=== PATIENT | female | born 1990 | race Hispanic/Latino ===

== ENCOUNTER 2016-12-03 19:50 | Observation (INO) | payer MEDICAID ==
[2016-12-03 21:16] LABS: BASO % 0.4 % (0.0-2.0); EOS # 0.1 K/uL (0.0-0.7); EOS % 0.5 % (0.0-4.0); LYMPH # 2.5 K/uL (1.0-4.3); LYMPH % 21.3 % (20.0-40.0); MEAN CELL VOLUME 94.9 fl (81.0-99.0); MEAN CORPUSCULAR HEMOGLOBIN 31.5 pg (27.0-31.0); MEAN CORPUSCULAR HGB CONC 33.2 g/dL (33.0-37.0); MEAN PLATELET VOLUME 7.6 fl (7.2-11.7); MONO # 0.6 K/uL (0.0-0.8); MONO % 4.9 % (0.0-10.0); NEUT # 8.5 K/uL (1.8-7.0); NEUT % 72.9 % (50.0-75.0); RED CELL DISTRIBUTION WIDTH 12.8 % (11.5-14.5); WHITE BLOOD COUNT 11.7 K/uL (4.8-10.8)
[2016-12-03 21:27] LABS: ALB/GLOB RATIO 1.5 (1.0-2.1); ALCOHOL SERUM < 10 mg/dl (0-10); ALKALINE PHOSPHATASE 65 U/L (38-126); ALT/SGPT 7 U/L (9-52); AST/SGOT 24 U/L (14-36); BILIRUBIN,TOTAL 0.5 mg/dl (0.2-1.3); BLOOD UREA NITROGEN 12 mg/dl (7-17); CALCIUM 9.1 mg/dL (8.4-10.2); CARBON DIOXIDE 23 mmol/L (22-30); CHLORIDE 105 mmol/L (98-107); GFR AFRICAN-AMERICAN > 60; GLUCOSE,RANDOM 131 mg/dL (65-105); MAGNESIUM 2.2 MG/DL (1.6-2.3); POTASSIUM 3.1 MMOL/L (3.6-5.0); SODIUM 144 mmol/l (132-148); TOTAL PROTEIN 7.1 G/DL (6.3-8.2)
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
--- NOTE | 2016-12-03 22:29 | CT ---
EXAM: CT Head Without Intravenous Contrast CLINICAL HISTORY: 37 years old, female; Pain; Headache; Additional info: AMS TECHNIQUE: Axial computed tomography images of the head/brain without intravenous contrast. This CT exam was performed using one or more of the following dose reduction techniques: automated exposure control, adjustment of the mA and/or kV according to patient size, and/or use of iterative reconstruction technique. COMPARISON: No relevant prior studies available. FINDINGS: Brain: No acute intracranial hemorrhage. No significant white matter disease. No edema. Ventricles: No significant ventriculomegaly. Bones: No acute displaced fracture. Sinuses: Unremarkable as visualized. No acute sinusitis. Mastoid air cells: Unremarkable as visualized. No mastoid effusion. IMPRESSION: No acute intracranial hemorrhage, or suspicious mass effect.
[2016-12-04] MEDS ORDERED: Potassium Chloride 20 mEq ER Tab PO ONE (00:19)
--- NOTE | 2016-12-04 00:28 | ED PDOC ---
- Laboratory Results Result Diagrams: 12/03/16 21:05 12/03/16 21:05 - ECG O2 Sat by Pulse Oximetry: 98 (RA) Pulse Ox Interpretation: Normal Medical Decision Making Medical Decision Making: Receiving Sign Out: Patient signed out to me by Dr. Fajardo pending screening from [facility] [place] for transfer. Vital signs are stable. Labs reviewed. In my opinion there are no current acute medical conditions that contraindicate the placement of this patient in a psychiatric unit. Scribe Attestation: Documented by Ceci Merlos acting as a scribe for Liang Gilmore MD. Provider Attestation: All medical record entries made by the Scribe were at my direction and personally dictated by me. I have reviewed the chart and agree that the record accurately reflects my personal performance of the history, physical exam, medical decision making, and the department course for this patient. I have also personally directed, reviewed, and agree with the discharge instructions and disposition. Disposition Counseled Patient/Family Regarding: Studies Performed, Diagnosis - Clinical Impression Clinical Impression: Psychosis - POA Present On Arrival: None - Disposition Disposition: Transfer of Care Disposition Time: 07:00 Condition: FAIR Patient Signed Over To: Louis Reid Handoff Comments: pending [facility] screening ED OBSERVATION Date of observation admission: 12/03/16 Time of observation admission: 21:00 - Observation admission statement Patient is being placed in observation because:: Pt awaiting [facility] transfer - Goals of Observation Goals of observation are:: Awaiting transfer - Progress Note Progress Note: 12/04/16 00:00 Pt signed over to me by Dr. Fajardo pending [facility] screen and transfer. 12/04/16 02:08 Pt in room, vitals stable 12/04/16 04:09 Pt resting in room, vitals stable.
[2016-12-04] MEDS ORDERED: K-Lyte 25meq EF Tab PO ONE ×2 (01:31→01:36)
--- NOTE | 2016-12-04 09:02 | CARD ---
APPROVED REPORT EKG Measurement Heart [id number] WI [id number] <Conclusion> Normal sinus rhythm T wave abnormality, consider anterior ischemia Abnormal ECG
--- NOTE | 2016-12-04 09:59 | ED PDOC ---
- Laboratory Results Result Diagrams: 12/03/16 21:05 12/03/16 21:05 - ECG O2 Sat by Pulse Oximetry: 97 - Radiology X-Ray: Interpreted by Me X-Ray Interpretation: No Acute Disease Medical Decision Making Medical Decision Making: Ttempted to hit 1:1 sitting with her. Attempt at de-escalation unsuccessful. Will place in 4 point restraints. No infiltrates or acute processes noted on CXR Disposition - Clinical Impression Clinical Impression: Psychosis - POA Present On Arrival: None - Disposition Disposition: Transfer of Care Disposition Time: 14:59 Condition: STABLE Patient Signed Over To: Favio Jacinto
--- NOTE | 2016-12-04 12:44 | RAD ---
HISTORY: psych eval COMPARISON: No prior. FINDINGS: LUNGS: No active pulmonary disease. PLEURA: No significant pleural effusion identified, no pneumothorax apparent. CARDIOVASCULAR: Normal. OSSEOUS STRUCTURES: No significant abnormalities. VISUALIZED UPPER ABDOMEN: Normal. OTHER FINDINGS: None. IMPRESSION: No active disease.
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
[2016-12-04 16:43] VITALS: BP 121/74; PULSE 84; RESP 18; TEMP 98.1
--- NOTE | 2016-12-04 17:43 | ED PDOC ---
- Laboratory Results Result Diagrams: 12/03/16 21:05 12/03/16 21:05 - ECG O2 Sat by Pulse Oximetry: 97 - Progress ED Course And Treament: 1500: Took over care from Dr. Reid. [place] on transfer. Medically cleared by him and transfer for psych accepted. 1741: Stable. Transfer here to take to [facility] [place]. Disposition - Clinical Impression Clinical Impression: Psychosis - POA Present On Arrival: None - Disposition Disposition: Other Institution Disposition Time: 17:42 Condition: FAIR
[2016-12-05 14:45] VITALS: O2SAT 98
== END 2016-12-04 17:53 ==
LOC: H.ER 19:50 → H.EROBSV 21:00 → MERGE 21:00 → EDBD 21:00
PROVIDERS: ADMIT Emergency Medicine; ATTEND Emergency Medicine
DX: F23 Brief psychotic disorder (principal); F12.10 Cannabis abuse, uncomplicated; Z78.1 Physical restraint status

== ENCOUNTER 2016-12-23 00:50 | Emergency (ER) | payer MEDICAID ==
[2016-12-23 01:06] VITALS: BP 133/84; PULSE 95; RESP 18; TEMP 98; O2SAT 100
--- NOTE | 2016-12-23 01:59 | ED PDOC ---
HPI: Psych/Substance Abuse Time Seen by Provider: 12/23/16 01:36 Chief Complaint (Nursing): Anxiety Chief Complaint (Provider): anxiety History Per: Patient History/Exam Limitations: no limitations Onset/Duration Of Symptoms: Hrs Current Symptoms Are (Timing): Gone Now Additional Complaint(s): 26yo female with PMHx including bipolar disorder presents to the ED, with , with c/o anxiety. Patient was recently admitted and [place] [facility] [place] 14 day admission. Patient discharged on many anti-psychotics. Has not f/u w/ psychiatrist yet and has appointment on Monday (3 days). Reports taking all meds for the night. Believes she is anxious because she did not smoke cigarette. Patient wants to go home and states she is no longer anxious. Past Medical History Reviewed: Historical Data, Nursing Documentation, Vital Signs Vital Signs: Last Vital Signs Temp 98 F 12/23/16 01:04 Pulse 95 H 12/23/16 01:04 Resp 18 12/23/16 01:04 BP 133/84 12/23/16 01:04 Pulse Ox 100 12/23/16 01:04 - Medical History PMH: Bipolar Disorder Denies: Diabetes, Hepatitis, HIV, HTN, Seizures, Sexually Transmitted Disease - Surgical History Surgical History: No Surg Hx - Family History Family History: States: No Known Family Hx - Allergies Allergies/Adverse Reactions: Allergies Allergy/AdvReac Type Severity Reaction Status Date / Time No Known Allergies Allergy Verified 11/18/16 15:52 Review of Systems ROS Statement: Except As Marked, All Systems Reviewed And Found Negative Psych: Positive for: Anxiety Physical Exam - Reviewed Nursing Documentation Reviewed: Yes Vital Signs Reviewed: Yes - Physical Exam Appears: Positive for: Well, No Acute Distress Head Exam: Positive for: ATRAUMATIC, NORMAL INSPECTION, NORMOCEPHALIC Skin: Positive for: Normal Color, Warm, Dry Eye Exam: Positive for: Normal appearance, EOMI, PERRL ENT: Positive for: Normal ENT Inspection Neck: Positive for: Normal, Painless ROM, Supple Cardiovascular/Chest: Positive for: Regular Rate, Rhythm. Negative for: Murmur , Tachycardia Respiratory: Positive for: Normal Breath Sounds. Negative for: Wheezing, Respiratory Distress Gastrointestinal/Abdominal: Positive for: Normal Exam, Bowel Sounds, Soft. Negative for: Tenderness Back: Positive for: Normal Inspection Extremity: Positive for: Normal ROM. Negative for: Deformity, Swelling Neurologic/Psych: Positive for: Alert, Oriented - ECG O2 Sat by Pulse Oximetry: 100 Pulse Ox Interpretation: Normal (RA) Medical Decision Making Medical Decision Makin: Impression: anxiety, now resolved Patient did not want crisis evaluation and was advised to take nicotine gum to help with smoking. Instructed to f/u w/ her PCP and psychiatrist. Stable for d/ c. Dx: anxiety, resolved Scribe Attestation: Documented by Jonathon Levin acting as a scribe for Deirdre Pozo PA-C. Provider Scribe Attestation: All medical record entries made by the Scribe were at my direction and personally dictated by me. I have reviewed the chart and agree that the record accurately reflects my personal performance of the history, physical exam, medical decision making, and the department course for this patient. I have also personally directed, reviewed, and agree with the discharge instructions and disposition. Disposition - Clinical Impression Clinical Impression: Anxiety - Patient ED Disposition Is Patient to be Admitted: No - Disposition Disposition: Routine/Home Disposition Time: 01:45 Condition: STABLE Instructions: Anxiety (ED)
== END 2016-12-23 01:45 | disposition home or self-care (01) ==
LOC: H.ER 00:50
DX: F41.9 Anxiety disorder, unspecified (principal)